=== PATIENT | male | born 1985 | race African-American/Black ===

== ENCOUNTER 2017-04-29 05:52 | Emergency (ER) | payer OTHER ==
[~2017-04-29] VITALS: Ht 177.8 cm; Wt 60.9 kg
[~2017-04-29 05:52] MED LIST: BENTYL10 MG PO; NOHOMEMEDS; ZOFRAN4 MG PO
[2017-04-29 06:33] LABS: HEMATOCRIT 38.7 % (38.0-50.0); MCH 30.4 PG (29.0-34.0); MCHC 36.2 G/DL (30.0-36.0); MCV 84.1 FL (86-99); MEAN PLAT.VOLUME 10.6 uM^3 (9.0-12.4); PLATELET COUNT 205 K/uL (156-360); RBC DIS.WIDTH-CV 12.1 % (11.8-14.6); RBC DIS.WIDTH-SD 36.9 % (39-53); WHITE BLOOD COUNT 8.3 K/uL (4.1-10.2)
[2017-04-29 06:41] LABS: CHLORIDE 109 mEq/L (99-109); POTASSIUM 3.2 mEq/L (3.7-5.4); SODIUM 141 mEq/L (136-147)
[2017-04-29 06:44] LABS: GLUCOSE 126 mg/dL (70-99)
[2017-04-29 06:45] LABS: ANION GAP 13 MEQ/L (2-14); TOTAL BILIRUBIN 0.9 mg/dL (0.0-1.0)
[2017-04-29 06:47] LABS: ALKALINE PHOSPHATASE 44 IU/L (3-129); GFR ESTIMATE (CALCULATED) > 59 mL/min/; SERUM ETHYL ALCOHOL < 10 mg/dL
[2017-04-29 06:48] LABS: UREA NITROGEN (BUN) 18 mg/dL (9-23)
[2017-04-29 07:22] LABS: ADD MIUA? YES; BILIRUBIN NEGATIVE; BLOOD NEGATIVE; COLOR YELLOW ((YELLOW)); GLUCOSE (STRIP) NEGATIVE; KETONES 80; LEUKOCYTES NEGATIVE; NITRITE NEGATIVE; PROTEIN (STRIP) 100; SPECIFIC GRAVITY 1.028 (1.000-1.030)
[2017-04-29 07:59] LABS: BACTERIA NONE SEEN /HPF; EPITHELIAL CELLS RARE /HPF; MUCUS 4+ /LPF; RED BLOOD CELLS 0-5 /HPF (0-5); UCUL ADDED? NO; WHITE BLOOD CELLS 0-5 /HPF (0-5)
[2017-04-29] MEDS ORDERED: ZOFRAN8 MG PO (10:35)
[2017-04-29 10:52] VITALS: BP 127/69
== END 2017-04-29 10:57 | disposition home or self-care (01) ==
LOC: EME → EDBD 05:52 → EME 10:57
PROVIDERS: Nurse Practitioner Family
DX: R11.2 Nausea with vomiting, unspecified (principal)
CPT/HCPCS: 80053; 81003; 85027; 99281; 99285; G0480; J2270; J2405; J2765; J7030

== ENCOUNTER 2017-05-01 16:42 | Emergency (ER) | payer OTHER ==
[~2017-05-01] VITALS: Ht 177.8 cm; Wt 64.0 kg
[~2017-05-01 16:42] MED LIST changes: +ZOFRAN8 MG PO
[2017-05-01 17:34] LABS: HEMATOCRIT 39.3 % (38.0-50.0); MCH 30.4 PG (29.0-34.0); MCHC 36.4 G/DL (30.0-36.0); MCV 83.6 FL (86-99); MEAN PLAT.VOLUME 10.5 uM^3 (9.0-12.4); PLATELET COUNT 191 K/uL (156-360); RBC DIS.WIDTH-CV 11.9 % (11.8-14.6); RBC DIS.WIDTH-SD 36.3 % (39-53); WHITE BLOOD COUNT 9.5 K/uL (4.1-10.2)
[2017-05-01 17:46] LABS: CHLORIDE 110 mEq/L (99-109); SODIUM 143 mEq/L (136-147)
[2017-05-01 17:48] LABS: GLUCOSE 108 mg/dL (70-99)
[2017-05-01 17:50] LABS: ANION GAP 11 MEQ/L (2-14)
[2017-05-01 17:52] LABS: ALKALINE PHOSPHATASE 46 IU/L (3-129); GFR ESTIMATE (CALCULATED) > 59 mL/min/
[2017-05-01 17:53] LABS: UREA NITROGEN (BUN) 16 mg/dL (9-23)
[2017-05-01 17:55] LABS: TOTAL BILIRUBIN 1.1 mg/dL (0.0-1.0)
[2017-05-01] MEDS ORDERED: BENTYL10 MG PO (20:34)
[2017-05-01] MEDS ORDERED: ZOFRAN ODT4 MG PO (20:34)
[2017-05-01 23:38] VITALS: BP 139/74
== END 2017-05-01 23:40 | disposition home or self-care (01) ==
LOC: EME 16:42
DX: B34.9 Viral infection, unspecified (principal); R11.2 Nausea with vomiting, unspecified
CPT/HCPCS: 80053; 81003; 85027; J1630; J2405; J7030

== ENCOUNTER 2017-09-22 09:10 | Emergency (ER) | payer OTHER ==
[~2017-09-22] VITALS: Ht 175.3 cm; Wt 63.0 kg
[~2017-09-22 09:10] MED LIST changes: +ZOFRAN ODT4 MG PO
[2017-09-22 11:58] VITALS: BP 123/65
== END 2017-09-22 11:58 | disposition home or self-care (01) ==
LOC: EME 09:10
DX: S86.211A Strain of muscle(s) and tendon(s) of anterior muscle group at lower leg level, right leg, initial encounter (principal); W06.XXXA Fall from bed, initial encounter
CPT/HCPCS: 73564; 99281; 99284